=== PATIENT | female | born 1980 | race Caucasian/White ===

== ENCOUNTER → 2019-06-29 | Outpatient (CLI) | payer OTHER ==
--- NOTE | 2019-06-29 15:17 | REP ---
Right lower extremity Duplex Doppler venous ultrasound: Real time compression and duplex Doppler interrogation of the right lower extremity deep venous system is performed. The right common femoral, superficial femoral and popliteal veins are fully compressible with transducer pressure and demonstrate normal spontaneous and phasic flow, without evidence of deep venous thrombosis. Impression: No evidence of deep venous thrombosis of the right lower extremity femoral popliteal venous system. Electronically Signed by Jalen Alvarez MD 06/29/2019 03:09 P
== END ==
LOC: M RAD 14:31
PROVIDERS: ATTEND Physician Assistant Medical
DX: M79.671 Pain in right foot (principal)

== ENCOUNTER → 2020-02-09 | Outpatient (CLI) | payer OTHER | LOC: M LABSMTC 13:10 | PROVIDERS: ATTEND Family Medicine | DX: Z11.59 Encounter for screening for other viral diseases (principal); Z20.818 Contact with and (suspected) exposure to other bacterial communicable diseases ==

== ENCOUNTER 2020-09-26 05:17 | Inpatient (IN) | payer OTHER ==
[~2020-09-26] VITALS: Ht 175.3 cm; Wt 114.2 kg
[2020-09-26] MEDS ORDERED: WELLTAB38 PO (05:49)
[2020-09-26] MEDS ORDERED: LIOT5TAB6 PO ×2 (05:49→06:05)
[2020-09-26] MEDS ORDERED: BUPR150T3 PO ×2 (05:49→06:05)
[2020-09-26] MEDS ORDERED: SYNT137T7 PO (06:05)
[2020-09-26] MEDS ORDERED: IBUP1TAB7 PO (06:05)
[2020-09-26] MEDS ORDERED: VITMTA PO (06:05)
[2020-09-26 06:06] LABS: HEMATOCRIT 40.6 % (36.0-47.0); HEMOGLOBIN 13.1 g/dl (12.0-15.5); MEAN CORPUSCULAR HEMOGLOBIN 32.5 pg (27.0-33.0); MEAN CORPUSCULAR HGB CONC 32.3 g/dl (32.0-36.5); MEAN CORPUSCULAR VOLUME 100.7 fl (80.0-96.0); PLATELET COUNT, AUTOMATED 273 10^3/uL (150-450); RED BLOOD COUNT 4.03 10^6/uL (4.00-5.40); WHITE BLOOD COUNT 5.8 10^3/uL (4.0-10.0)
[2020-09-26 06:51] LABS: ACETAMINOPHEN LEVEL < 2.0 UG/ML (10.0-30.0); ALBUMIN 3.7 GM/DL (3.2-5.2); ALT/SGPT 31 U/L (12-78); BILIRUBIN,DIRECT 0.1 MG/DL (0.0-0.2); BILIRUBIN,TOTAL 0.4 MG/DL (0.2-1.0); BLOOD UREA NITROGEN 8 MG/DL (7-18); CALCIUM LEVEL 8.4 MG/DL (8.5-10.1); CARBON DIOXIDE LEVEL 23 MEQ/L (21-32); CHLORIDE LEVEL 105 MEQ/L (98-107); CREATININE FOR GFR 0.87 MG/DL (0.55-1.30); ETHYL ALCOHOL (ETHANOL) 0.264 % (0.000-0.010); GLOMERULAR FILTRATION RATE > 60.0 (>58); GLUCOSE, FASTING 98 MG/DL (70-100); POTASSIUM SERUM 3.4 MEQ/L (3.5-5.1); SODIUM LEVEL 137 MEQ/L (136-145); TOTAL PROTEIN 7.8 GM/DL (6.4-8.2)
[2020-09-26 07:24] LABS: AMPHETAMINES LEVEL URINE NEGATIVE (NEGATIVE); BARBITURATES URINE NEGATIVE (NEGATIVE); BENZODIAZEPINES URINE NEGATIVE (NEGATIVE); CANNABINOIDS URINE NEGATIVE (NEGATIVE); COCAINE METABOLITE URINE NEGATIVE (NEGATIVE); METHADONE URINE NEGATIVE (NEGATIVE); OPIATES URINE NEGATIVE (NEGATIVE); PHENCYCLIDINE URINE NEGATIVE (NEGATIVE)
[2020-09-26] MEDS ORDERED: buPROPion 75 MG TAB PO SCH (10:00)
[2020-09-26] MEDS ORDERED: NICOTINE 21MG/24HR 1 EA TRANSDERMAL TD ONE (10:00)
[2020-09-26] MEDS ORDERED: LEVOTHYROXINE 137MCG TABLET (0.137MG) PO SCH (10:00)
[2020-09-26] MEDS ORDERED: LEVOTHYROXINE 137MCG TABLET (0.137MG) PO ONE (10:00)
[2020-09-26] MEDS ORDERED: buPROPion **XL** TABLET 150MG (WELLBUTRIN XL) PO ONE (10:45)
[2020-09-26] MEDS ORDERED: LORazepam 2 MG TAB PO STA (12:39)
[2020-09-26] MEDS ORDERED: LORazepam 2 MG TAB PO PRN ×2 (15:15→17:30)
[2020-09-26] MEDS ORDERED: MAALOX 30 ML SUSP *UDC PO PRN (17:30)
[2020-09-26] MEDS ORDERED: IBUPROFEN 800 MG TAB PO PRN (17:30)
[2020-09-26] MEDS ORDERED: MOM 30ML SUSPENSION UDC PO PRN (17:30)
[2020-09-26] MEDS ORDERED: ACETAMINOPHEN TAB 650MG DOSE (2X325MG) PO PRN (17:30)
[2020-09-26 18:30] VITALS: BP 140/84
[2020-09-26 20:28] VITALS: BP 148/92
[2020-09-26 20:33] VITALS: BP 148/92
[2020-09-26] MEDS ORDERED: THIAMINE 100 MG TAB PO SCH (21:00)
[2020-09-26] MEDS: THIAMINE 100 MG TAB PO SCH (22:52)
[2020-09-26] MEDS: traZODone 50 MG TAB PO PRN (22:56)
[2020-09-27 05:46] VITALS: BP 150/90
[2020-09-27 06:23] VITALS: BP 150/90
[2020-09-27] MEDS: LEVOTHYROXINE 137MCG TABLET (0.137MG) PO SCH (06:29)
[2020-09-27] MEDS ORDERED: INFLUENZA QUADRIVALENT PF VACCINE 0.5ML SYRINGE IM ONE (09:00)
[2020-09-27] MEDS ORDERED: FLUCONAZOLE 100 MG TAB PO SCH (09:00)
[2020-09-27] MEDS: buPROPion 100 MG TAB PO SCH (09:00)
[2020-09-27] MEDS ORDERED: buPROPion **XL** TABLET 150MG (WELLBUTRIN XL) PO SCH (09:00)
[2020-09-27] MEDS ORDERED: FOLIC ACID 1 MG TAB PO SCH (09:00)
[2020-09-27] MEDS: SERTRALINE HCL 50 MG TAB PO SCH (09:00)
[2020-09-27] MEDS ORDERED: MULTIVITAMINS/MINERALS THERAP 1 TAB PO SCH (09:00)
[2020-09-27] MEDS: MULTIVITAMINS/MINERALS THERAP 1 TAB PO SCH (09:13)
[2020-09-27] MEDS: THIAMINE 100 MG TAB PO SCH ×2 (09:13→20:27)
[2020-09-27] MEDS: FOLIC ACID 1 MG TAB PO SCH (09:13)
[2020-09-27] MEDS: NICOTINE 21MG/24HR 1 EA TRANSDERMAL TD SCH (09:14)
[2020-09-27 10:30] VITALS: BP 147/82
--- NOTE | 2020-09-27 10:40 | HPEPDOC ---
General Date of Admission Sep 26, 2020 at 17:22 Date of Service: Sep 27, 2020 Chief Complaint The patient is a 40-year-old female admitted with a reason for visit of Depressive Disorder. Source: Patient History of Present Illness 40 year old female with PMH of Hypothyroid after thyroidectomy, obesity, depression, alcohol use disorder [facility] Depression and suicidal gesture by cutting her left forearm with a blunt knife. I am seeing the patient for medical history and physical. She complained rashes over her legs and thighs. this started from this summer from the lower part of the leg and then involved several spots on both the legs and upper thighs. The lesions are erythematous, macular about 0.5 cm x 0.5 cm in size, not raised from the surface but rough to touch, dry and eczematous. She has been applying over the counter antifungal spray off and on. It is not itchy. 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, obesity, depression, al cohol use disorder Surgical History Total thyroidectomy, C/S x2 , ovarian cyst surgery, arthroscopic right knee surgery x 9 times, cholecystectomy Family History Significant Family History: Heart disease, Hyperlipidemia Social History * Smoker: current smoker Alcohol: heavy Drugs: denies A-FIB/CHADSVASC A-FIB History Current/History of A-Fib/PAF?: No Review of Systems Constitutional: Reports: Fatigue; Denies: Chills, Fever, Night Sweats Eyes: Denies: Pain, Vision change ENT: Denies: Head Aches, Ear Pain, Dysphagia Skin: Reports: Rash, Lesions, Bruising Pulmonary: Denies: Dyspnea, Cough Cardiovascular: Denies: Chest Pain, Palpitations, Orthopnea, Paroxysmal Noc. Dyspnea, Lt Headedness Gastrointestinal: Denies: Nausea, Vomiting, Abdominal Pain, Diarrhea Hematologic: Denies: Bruising, Bleeding Excessively Musculoskeletal: Reports: Joint Pain (both knee joints); Denies: Neck Pain, Back Pain, Muscle Pain, Spasms Physical Examination General Exam: Positive: Alert, Cooperative, No Acute Distress Eye Exam: Positive: PERRLA, Conjunctiva & lids normal, EOMI; Negative: Sclera icteric ENT Exam: Positive: Atraumatic, Mucous membr. moist/pink, Pharynx Normal Neck Exam: Positive: Supple; Negative: JVD, thyromegaly Chest Exam: Positive: Clear to auscultation, Normal air movement Heart Exam: Positive: Rate Normal, Regular Rhythm, Normal S1, Normal S2; Negative: Murmurs, Rubs Abdomen Exam: Positive: Normal bowel sounds, Soft; Negative: Tenderness, Hepatospenomegaly Extremity Exam: Positive: Normal pulses; Negative: Clubbing, Cyanosis, Edema Skin Exam: Positive: Rash (on both legs and thighs.), Other skin issue (brouising on both the upper thighs) Neuro Exam: Positive: Normal Gait, Normal Speech, Cranial Nerves 3-12 NL, Reflexes 2+ Vital Signs Vital Signs Date Time Temp Pulse Resp B/P (MAP) Pulse Ox O2 Delivery O2 Flow Rate FiO2 09/27/20 06:23 99.1 86 16 150/90 (110) 98 Room Air Laboratory Data Labs 24H Laboratory Tests 2 09/26/20 15:39: Coronavirus (COVID-19)(PCR) NEGATIVE, Influenza Type A (RT-PCR) NEGATIVE, Influenza Type B (RT-PCR) NEGATIVE, Respiratory Syncytial Virus (PCR) NEGATIVE Assessment/Plan 40 year old female with PMH of Hypothyroid after thyroidectomy, obesity, depression, alcohol use disorder [facility] Depression and suicidal gesture by cutting her left forearm with a blunt knife. I am seeing the patient for medical history and physical. Rash possibly taenia corporis will give fluconazole and nystatin/ triamcinolone cream. Post surgical Hypothyroidism continue Synthroid and Liothyronine. Depression as per psychiatry Alcohol use disorder. Plan / VTE VTE Prophylaxis Ordered?: No (freely ambulatory) BHANU MORALES MD Sep 27, 2020 07:34
[2020-09-27] MEDS: MYCOLOG CREAM 15 GM (NYSTATIN/TRIAMCINOLONE) TOP SCH ×2 (12:01→20:27)
[2020-09-27] MEDS: LIOTHYRONINE 25 MCG TAB PO SCH (12:03)
--- NOTE | 2020-09-27 15:45 | MHHPEPDOC ---
General Date Of Admission: Sep 26, 2020 Legal Status: 9.39 Chief Complaint "I've been so, so lonely" History of Present Illness HISTORY OF THE PRESENT ILLNESS: Patient is a 40 -year-old , female, who, as per ED report: ".Pt. reports feeling overwhelmed,anxious, having panic attacks. She states of two years told started talking about divorce last night and she became very upset, felt herself getting very angry and felt like it was a way to get out of the current situation, so she took fork and made cuts to her arm with a fork. Pt. states she called police herself. She denies current SI. She states that she has been drinking almost daily for past couple of months due to stress. She believes spouse may be having an affair, he has been taking medication for erectile dysfunction even when he is not home. Pt. reports she has been home with children(6 between two of them) and doing home schooling due to Covid and not getting help from spouse due to him working. She is tearful during interveiw. She reports history of PTSD,Anxiety and depression. Pt. denies current out-pt counseling, receives medication from her PCP." Psychiatric Review of Systems Depression (2 or more weeks): depressed mood, anhedonia, insomnia/hypersomnia, feelings of excess/guilt, feelings of worthlesness, decreased energy, difficulty concentrating, appetite changes (she says is all over the place, but she is gaining weight and she thinks is scondary to alcohol abuse), suicidal thoughts Sirena (4 or more days of): denies Psychosis: paranoia (she says she has felt paranoid and it has been this way for severl years), denies PTSD: history of trauma (She says she had a very bad marriage ad she is still "messing up with me". She says she has a build up anger) Anxiety: gen/non-specific anxiety, situational anxiety, stressor related anxiety, panic attacks Anxiety/ 6 months or more of: restlessness, keyed up, easily fatigued, difficulty concentrating, irritability, muscle tension, sleep disturbance Past Psychiatric History Previous Psychiatric Diagnosis: Has a h/o depression and alcohol abuse Previous Psychiatric Admissions: Denies Suicide Attempts: She got admitted because she was using a fork to hut herself a nd called the Police asking for help. Psychiatric Follow-up: None Psychiatric medications: She says she has taken a lot of them, she says she can't begin to remember the names of the medications but according to h/o, she has been taking Wellbutrin and Buspar. She says she is not responding to them anymore Past Medical History Medical Problems As per Dr. 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 her gallbladder was removed, she had a thyroidectomy) Surgeries: Yes Family Medical/Psychiatric HX Medical Problems Mother has COPD. Mom had prostate cancer, one of her aunts had cervical cancer. Psychiatric Disorders: Yes (She thinks her father is bipolar and has panic attacks. he is medicated) Addiction: Yes (Father is a recovering alcoholic of 27 years) Suicide Attemps/Completions: No Addiction History nicotine (She says she is trying to quit smoking), alcohol, cocaine (When she was in her twenties, she was experimenting), other (marijuana years ago, experimenting) Social History Childhood: Mom and dad when she was in 3rd or 4th grade. Mom was angry all the time. Every other weekend she went to her grandparents. Her father re . Her parents didn't have a good relationship because he was an alcoholic. he had a good relationship with siblings, mom and dad. Abuse/Trauma: Denies Current Living Situation: Lives at with her . She has 4 children from her ex and her has 2 children from his ex. 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 her first . Lives with her second who is also Mental Status Examination General Appearance: unkempt, disheveled, hospital scubs/clothing Build: average Demeanor: average Eye Contact: average Activity: average Behavior: cooperative Speech: clear, spontaneous, reg/rate,rhythm,volume Mood: depressed, anxious Affect: full, congruent, anxious Thought Process: logical/linear, depressed Thought Content (Delusions): none reported Thought Content (Other): preoccupied, ideas of reference Thought Content (Aggressive): none reported Perception (Hallucinations): none reported Perception (Other): none reported Cognition (Impairment of): none reported Cognition(Intelligence Est.): average Oriented: Awake, Alert, Oriented times three Insight: fair Judgment: Fair Psychosis: Denies Diagnoses 1. Adjustment disorder with anxious/depressed mood 2. ETOH induced mood disorder 3. Major Depressive Disorder, recurrent 4. alcohol use disorder A-FIB/CHADSVASC A-FIB History Current/History of A-Fib/PAF?: No Current PO Anticoag Therapy: No Age/Risk Factor Scoring CHADSVASC: CHADSVASC Response (Comments) Value Age Risk Factor Age < 65 years old 0 Gender Risk Factor Female 1 Hx of CHF No 0 Hx of HTN No 0 Hx of Stroke/TIA/or VTE No 0 Hx of Diabetes No 0 Hx of Vascular Disease No 0 Total 1 Treatment Treatment ordered: NONE Reason Anticoagulant not given: Not indicated/[id number] Assessment She is very depressed, she is insightful about her alcohol use disorder, about it making things more difficult. she has low self esteem, she thinks her is having an affair and this is affecting her alos, besides, she feels she lost her career ad her independence because she hasn't been working since covid started. Initial Treatment Plan 1. Patient was admitted on a [9.39] status. 2. Complete history was obtained. 3. With patients permission, family will be contacted and database will be expanded. 4. Patients medication regimen will be reviewed and changed accordingly. 5. Patient will be provided with protected environment. 6. Patient will be treated with individual, group, and milieu therapies. 7. Patient will receive supportive psych-education. 8. Discharge planning will commence immediately. 9. Outpatient follow-up treatment will be strongly recommended. 10. The initial treatment plan will focus initially on: * Depression. * Anxiety * Risk for suicide. * Alcohol abuse ESTIMATED LENGTH OF STAY: 5-7 DAYS. TIME SPENT COUNSELING AND COORDINATING INITIAL CARE: 60 minutes. Vital Signs Vital Signs Date Time Temp Pulse Resp B/P (MAP) Pulse Ox O2 Delivery O2 Flow Rate FiO2 09/27/20 10:40 Room Air 09/27/20 10:30 99 147/82 09/27/20 06:23 99.1 16 98 Laboratory Data 24H Labs Laboratory Tests 2 09/26/20 15:39: Coronavirus (COVID-19)(PCR) NEGATIVE, Influenza Type A (RT-PCR) NEGATIVE, Influenza Type B (RT-PCR) NEGATIVE, Respiratory Syncytial Virus (PCR) NEGATIVE Medications Scheduled Bupropion Hcl (Bupropion Xl) 150 Mg Tab.er.24h, 150 MG PO DAILY, (Reported) Levothyroxine Sodium (Synthroid) 137 Mcg Tablet, 137 MCG PO DAILY, (Reported) Liothyronine Sodium (Liothyronine Sodium) 5 Mcg Tablet, 5 MCG PO DAILY, (Reported) Multivitamins (Thera M Plus Tablet) 1 Each Tablet, 1 TAB PO DAILY, (Reported) Scheduled PRN Ibuprofen (Ibuprofen) 800 Mg Tablet, 800 MG PO TID PRN for PAIN, (Reported) Allergies Coded Allergies: No Known Allergies (Verified Allergy, Unknown, 09/26/20) NOLBERTO GASTON MD Sep 27, 2020 15:11
[2020-09-27 15:57] VITALS: BP 176/87
[2020-09-27 18:11] VITALS: BP 176/87
[2020-09-27] MEDS: traZODone 50 MG TAB PO PRN (20:27)
[2020-09-27] MEDS ORDERED: diphenhydrAMINE 50MG CAP PO ONE (21:15)
[2020-09-27] MEDS ORDERED: LORazepam 1 MG TAB PO ONE (21:15)
[2020-09-27 22:30] VITALS: BP 142/92
[2020-09-28] MEDS: LEVOTHYROXINE 137MCG TABLET (0.137MG) PO SCH (05:53)
[2020-09-28 06:28] VITALS: BP 124/66
[2020-09-28 06:31] VITALS: BP 124/78
[2020-09-28] MEDS: LIOTHYRONINE 25 MCG TAB PO SCH (08:43)
[2020-09-28] MEDS: SERTRALINE HCL 50 MG TAB PO SCH (08:43)
[2020-09-28] MEDS: NICOTINE 21MG/24HR 1 EA TRANSDERMAL TD SCH (08:43)
[2020-09-28] MEDS: buPROPion 100 MG TAB PO SCH (08:43)
[2020-09-28] MEDS: FOLIC ACID 1 MG TAB PO SCH (08:44)
[2020-09-28] MEDS: THIAMINE 100 MG TAB PO SCH ×2 (08:44→20:07)
[2020-09-28] MEDS: MULTIVITAMINS/MINERALS THERAP 1 TAB PO SCH (08:44)
[2020-09-28] MEDS: MYCOLOG CREAM 15 GM (NYSTATIN/TRIAMCINOLONE) TOP SCH ×2 (08:45→20:08)
[2020-09-28] MEDS ORDERED: OLANZapine 5 MG TAB PO ONE (10:00)
[2020-09-28] MEDS ORDERED: OLANZapine 5 MG TAB PO PRN (10:00)
--- NOTE | 2020-09-28 14:40 | MHIPNPDOC ---
[facility] Progress Note Progress Note DATE OF SERVICE: 09/28/20 HISTORY: As per previous notes: "Patient is a 40 -year-old , female, who, as per ED report: ".Pt. reports feeling overwhelmed,anxious, having panic attacks. She states of two years told started talking about divorce last night and she became very upset, felt herself getting very angry and felt like it was a way to get out of the current situation, so she took fork and made cuts to her arm with a fork. Pt. states she called police herself. She denies current SI. She states that she has been drinking almost daily for past couple of months due to stress. She believes spouse may be having an affair, he has been taking medication for erectile dysfunction even when he is not home. Pt. reports she has been home with children(6 between two of them) and doing home schooling due to Covid and not getting help from spouse due to him working. She is tearful during interveiw. She reports history of PTSD,Anxiety and depression. Pt. denies current out-pt counseling, receives medication from her PCP." VITAL SIGNS: See below. NEW TEST RESULTS: See below CURRENT MEDICATIONS: See below. Mental Status Examination General Appearance: unkempt, disheveled, personla clothes, good eye contact Build: average Demeanor: average Eye Contact: average Activity: average Behavior: cooperative, anxious Speech: clear, spontaneous, reg/rate,rhythm,volume Mood: depressed, anxious Affect: full, congruent, anxious Thought Process: logical/linear, depressed Thought Content (Delusions): none reported Thought Content (Other): preoccupied, ideas of reference, angry thoughts about the problems her marriage is going through Thought Content (Aggressive): none reported Perception (Hallucinations): none reported Perception (Other): none reported Cognition (Impairment of): none reported Cognition(Intelligence Est.): average Oriented: Awake, Alert, Oriented times three Insight: fair Judgment: Fair Psychosis: Denies Diagnoses 1. Adjustment disorder with anxious/depressed mood 2. ETOH induced mood disorder 3. Major Depressive Disorder, recurrent 4. alcohol use disorder ASSESSMENT: She says she has been having a very bad time because someone ( she thinks it was one of her friends) old her 19 year old son that she has at the hospital. He went to speak with the patient;s and found out that her was having a green party with some women at their home and he was celebrating that they are getting a divorce. She doesn't want a divorce, she wants treatment, she wants to stop drinking, she wants to go to work, become an independent person again, so that her will be able to see the change in her. MANAGEMENT PLAN: She is very anxious but she says she took a Zyprexa 5 mgs today around 10:20 a.m and she has it ordered every 6 hours as needed. She feels that is working and is helping to control her anxiety and her mood, since she says she has been "up and down lately" ( however, she doesn't fulfil criteria for bipolar disorder). I think her mood instability is related to her anxiety and her drinking problem. TIME SPENT: 25 minutes. Vital Signs Vital Signs Date Time Temp Pulse Resp B/P (MAP) Pulse Ox O2 Delivery O2 Flow Rate FiO2 09/28/20 09:40 Room Air 09/28/20 06:31 98.7 81 16 124/78 (93) 98 Current Medications Current Medications Medications (Trade) Dose Ordered Sig/Tabitha Route PRN Reason Start Time Stop Time Status Last Admin Dose Admin Acetaminophen (Tylenol Tab) 650 mg Q6HP PRN PO HEADACHE or DISCOMFORT 09/26/20 17:30 Al Hydrox/Mg Hydrox/Simethicone (Mylanta) 30 ml Q4HP PRN PO HEARTBURN/INDIGESTION 09/26/20 17:30 Bupropion HCl (Wellbutrin Xl) 150 mg DAILY PO 09/27/20 09:00 09/27/20 15:43 DC 09/27/20 09:13 Bupropion HCl (Wellbutrin) 50 mg DAILY PO 09/27/20 09:00 09/28/20 08:43 Bupropion HCl (Wellbutrin) 150 mg NOW PO 09/26/20 10:00 Cancel Fluconazole (Diflucan Tablet) 200 mg Sa@0900 PO 09/27/20 09:00 10/18/20 09:01 09/27/20 12:01 Folic Acid (Folic Acid) 1 mg DAILY PO 09/27/20 09:00 09/26/20 19:29 DC Folic Acid (Folic Acid) 1 mg DAILY PO 09/27/20 09:00 12/6/20 08:44 Home Med (Med Rec Complete!) ASDIRECTED XX 09/26/20 06:15 09/26/20 06:09 DC Ibuprofen (Advil) 800 mg TIDP PRN PO PAIN 09/26/20 17:30 09/27/20 21:53 Levothyroxine Sodium (Synthroid) 137 mcg DAILY@0600 PO 09/27/20 06:00 09/28/20 05:53 Levothyroxine Sodium (Synthroid) 137 mcg NOW PO 09/26/20 10:00 Cancel Liothyronine Sodium (Cytomel) 6.25 mcg DAILY PO 09/27/20 09:00 09/28/20 08:43 Lorazepam (Ativan) 2 mg ASDIRECTED PRN PO SEE PROTOCOL 09/26/20 15:15 09/26/20 19:30 DC Lorazepam (Ativan) 2 mg ASDIRECTED PRN PO SEE PROTOCOL 09/26/20 17:30 09/27/20 06:31 Lorazepam (Ativan) 2 mg STAT STAT PO 09/26/20 12:39 09/26/20 12:40 DC 09/26/20 12:48 Magnesium Hydroxide (Milk Of Magnesia) 30 ml DAILYPRN PRN PO CONSTIPATION 09/26/20 17:30 Multivitamins (Theragram-M) 1 tab DAILY PO 09/27/20 09:00 09/26/20 19:30 DC Multivitamins (Theragram-M) 1 tab DAILY PO 09/27/20 09:00 09/28/20 08:44 Nicotine (Nicoderm Cq 21mg) 1 patch DAILY TD 09/27/20 09:00 09/28/20 08:43 Nystatin/ Triamcinolone Acetonide (Mycolog) to lesions on both legs ... BID TOP 09/27/20 09:00 09/28/20 08:45 Olanzapine (ZyPREXA) 5 mg Q6HP PRN PO ANXIETY/AGITATION 09/28/20 10:00 Sertraline HCl (Zoloft) 50 mg QAM PO 09/27/20 09:00 09/28/20 08:43 Thiamine HCl (Thiamine HCl) 100 mg BID PO 09/26/20 17:30 09/29/20 09:01 09/28/20 08:44 Thiamine HCl (Thiamine HCl) 100 mg BID PO 09/26/20 21:00 09/26/20 19:30 DC Trazodone HCl (Desyrel) 50 mg QHSP PRN PO INSOMNIA 09/26/20 17:30 09/27/20 20:27 Allergies Coded Allergies: No Known Allergies (Verified Allergy, Unknown, 09/26/20) NOLBERTO GASTON MD Sep 28, 2020 14:22
[2020-09-28 17:10] VITALS: BP 136/88
[2020-09-28 17:12] VITALS: BP 136/88
[2020-09-28] MEDS: traZODone 50 MG TAB PO PRN (20:09)
[2020-09-29] MEDS: LEVOTHYROXINE 137MCG TABLET (0.137MG) PO SCH (06:16)
[2020-09-29 06:27] VITALS: BP 136/61
[2020-09-29] MEDS: MYCOLOG CREAM 15 GM (NYSTATIN/TRIAMCINOLONE) TOP SCH ×2 (08:35→20:19)
[2020-09-29] MEDS: SERTRALINE HCL 50 MG TAB PO SCH (08:36)
[2020-09-29] MEDS: NICOTINE 21MG/24HR 1 EA TRANSDERMAL TD SCH (08:36)
[2020-09-29] MEDS: buPROPion 100 MG TAB PO SCH (08:39)
[2020-09-29] MEDS ORDERED: PILL CUTTER 1 EACH XX PRN (08:45)
[2020-09-29] MEDS: LIOTHYRONINE 25 MCG TAB PO SCH (08:45)
--- NOTE | 2020-09-29 09:59 | MHIPNPDOC ---
[facility] Progress Note Progress Note DATE OF SERVICE: 09/29/20 HISTORY: The patient is met with, she reports she is doing well feeling improved since coming to the unit, she disputes that she was ultimately suicidal but d escribes the situation that have brought her in as the primary provoking stressor. She otherwise describes she has no problems with her medications and is feeling improved she is interested in going home staff reports she has been doing well and that there is a paucity of concerns. VITAL SIGNS: See below. NEW TEST RESULTS: None. CURRENT MEDICATIONS: See below. MENTAL STATUS EXAMINATION: Patient is a 40-year old female, who is woman. Speech: Is fluid. Language skills are intact. Thought processes including: Linear. Thought content: Intact . Abstract reasoning, and computation: Intact. Description of associations: Intact. Description of abnormal or psychotic thoughts: Denies SI HI/AVH. Judgment: Good. Insight: Good. Orientation: AO x3. Recent and remote memory: Intact. Attention span and concentration: Intact. Language: Intact. Fund of knowledge: Linear. Mood: "Good"". Affect: Euthymic. DIAGNOSES: 1. Unspecified depressive disorder. 2. Alcohol use, unspecified. ASSESSMENT: Continue medications as current, likely discharge tomorrow if safe plan to be made MANAGEMENT PLAN: Continue medications as current, will pose disulfiram as an option when she leaves tomorrow. TIME SPENT: 15 minutes. Vital Signs Vital Signs Date Time Temp Pulse Resp B/P (MAP) Pulse Ox O2 Delivery O2 Flow Rate FiO2 09/29/20 06:27 97.2 71 18 136/61 (86) 09/28/20 09:40 Room Air 09/28/20 06:31 98 Current Medications Current Medications Medications (Trade) Dose Ordered Sig/Tabitha Route PRN Reason Start Time Stop Time Status Last Admin Dose Admin Acetaminophen (Tylenol Tab) 650 mg Q6HP PRN PO HEADACHE or DISCOMFORT 09/26/20 17:30 Al Hydrox/Mg Hydrox/Simethicone (Mylanta) 30 ml Q4HP PRN PO HEARTBURN/INDIGESTION 09/26/20 17:30 Bupropion HCl (Wellbutrin Xl) 150 mg DAILY PO 09/27/20 09:00 09/27/20 15:43 DC 09/27/20 09:13 Bupropion HCl (Wellbutrin) 50 mg DAILY PO 09/27/20 09:00 09/29/20 08:39 Bupropion HCl (Wellbutrin) 150 mg NOW PO 09/26/20 10:00 Cancel Fluconazole (Diflucan Tablet) 200 mg Sa@0900 PO 09/27/20 09:00 10/18/20 09:01 09/27/20 12:01 Folic Acid (Folic Acid) 1 mg DAILY PO 09/27/20 09:00 09/26/20 19:29 DC Folic Acid (Folic Acid) 1 mg DAILY PO 09/27/20 09:00 09/28/20 23:30 DC 09/28/20 08:44 Home Med (Med Rec Complete!) ASDIRECTED XX 09/26/20 06:15 09/26/20 06:09 DC Ibuprofen (Advil) 800 mg TIDP PRN PO PAIN 09/26/20 17:30 09/27/20 21:53 Levothyroxine Sodium (Synthroid) 137 mcg DAILY@0600 PO 09/27/20 06:00 09/29/20 06:16 Levothyroxine Sodium (Synthroid) 137 mcg NOW PO 09/26/20 10:00 Cancel Liothyronine Sodium (Cytomel) 6.25 mcg DAILY PO 09/27/20 09:00 09/29/20 08:45 Lorazepam (Ativan) 2 mg ASDIRECTED PRN PO SEE PROTOCOL 09/26/20 15:15 09/26/20 19:30 DC Lorazepam (Ativan) 2 mg ASDIRECTED PRN PO SEE PROTOCOL 09/26/20 17:30 09/28/20 23:30 DC 09/27/20 06:31 Lorazepam (Ativan) 2 mg STAT STAT PO 09/26/20 12:39 09/26/20 12:40 DC 09/26/20 12:48 Magnesium Hydroxide (Milk Of Magnesia) 30 ml DAILYPRN PRN PO CONSTIPATION 09/26/20 17:30 Multivitamins (Theragram-M) 1 tab DAILY PO 09/27/20 09:00 09/26/20 19:30 DC Multivitamins (Theragram-M) 1 tab DAILY PO 09/27/20 09:00 09/28/20 23:30 DC 09/28/20 08:44 Nicotine (Nicoderm Cq 21mg) 1 patch DAILY TD 09/27/20 09:00 09/29/20 08:36 Nystatin/ Triamcinolone Acetonide (Mycolog) to lesions on both legs ... BID TOP 09/27/20 09:00 09/29/20 08:35 Olanzapine (ZyPREXA) 5 mg Q6HP PRN PO ANXIETY/AGITATION 09/28/20 10:00 Sertraline HCl (Zoloft) 50 mg QAM PO 09/27/20 09:00 09/29/20 08:36 Thiamine HCl (Thiamine HCl) 100 mg BID PO 09/26/20 17:30 09/28/20 23:30 DC 09/28/20 20:07 Thiamine HCl (Thiamine HCl) 100 mg BID PO 09/26/20 21:00 09/26/20 19:30 DC Trazodone HCl (Desyrel) 50 mg QHSP PRN PO INSOMNIA 09/26/20 17:30 09/28/20 20:09 Allergies Coded Allergies: No Known Allergies (Verified Allergy, Unknown, 09/26/20) ZACHARY SANCHEZ DO Sep 29, 2020 09:59
[2020-09-29 16:00] VITALS: BP 144/81
[2020-09-29] MEDS: traZODone 50 MG TAB PO PRN (20:18)
[2020-09-30] MEDS: LEVOTHYROXINE 137MCG TABLET (0.137MG) PO SCH (06:07)
[2020-09-30 06:24] VITALS: BP 118/78
[2020-09-30] MEDS: MYCOLOG CREAM 15 GM (NYSTATIN/TRIAMCINOLONE) TOP SCH (08:24)
[2020-09-30] MEDS: NICOTINE 21MG/24HR 1 EA TRANSDERMAL TD SCH (08:25)
[2020-09-30] MEDS: buPROPion 100 MG TAB PO SCH (08:25)
[2020-09-30] MEDS: SERTRALINE HCL 50 MG TAB PO SCH (08:25)
[2020-09-30] MEDS: LIOTHYRONINE 25 MCG TAB PO SCH (08:26)
[2020-09-30] MEDS ORDERED: CYTO25TA6 PO (09:36)
[2020-09-30] MEDS ORDERED: SYNT137T7 PO (09:36)
[2020-09-30] MEDS ORDERED: BUPR-69 PO (09:36)
[2020-09-30] MEDS ORDERED: SERT50TA29 PO (09:36)
[2020-09-30] MEDS ORDERED: TRAZ-252 PO (09:36)
[2020-09-30] MEDS ORDERED: MYCO15CR TOP (09:36)
[2020-09-30] MEDS ORDERED: NICO21PAT TD (09:36)
[2020-09-30] MEDS ORDERED: HYDR50TA70 PO ×2 (09:40→09:42)
--- NOTE | 2020-09-30 13:36 | MHDSPDOC ---
[facility] Discharge Summary Discharge Summary DATE OF ADMISSION: Sep 26, 2020 at 17:22 DATE OF DISCHARGE: Sep 30, 2020 at 11:06 DISCHARGE DIAGNOSES: 1. Adjustment disorder with anxious/depressed mood 2. ETOH induced mood disorder 3. Major Depressive Disorder, recurrent 4. alcohol use disorder REASON FOR ADMISSION: Patient is a 40 -year-old , female, who, as per ED report: ".Pt. reports feeling overwhelmed, anxious, having panic attacks. She states of two years started talking about divorce last night and she became very upset, felt herself getting very angry and felt like it was a way to get out of the current situation, so she took fork and made cuts to her arm with a fork. Pt. states she called police herself. She denies current SI. She states that she has been drinking almost daily for past couple of months due to stress. She believes spouse may be having an affair, he has been taking medication for erectile dysfunction even when he is not home. Pt. reports she has been home with children(6 between two of them) and doing home schooling due to Covid and not getting help from spouse due to him working. She is tearful during interview. She reports history of PTSD,Anxiety and depression. Pt. denies current out-pt counseling, receives medication from her PCP." CONSULTANTS INVOLVED: See Medical H + P by Hospitalist TREATMENT AND PROGRESS ON THE UNIT: Patient was admitted to the [facility] on a 9.39 legal status he was afforded the following treatment modalities: 1) Individual Therapy 2) Group Therapy 3) Medication Management 4) Milieu Therapy 5) Safe Environment HOSPITAL COURSE: Patient was restarted on her home medications with a decrease in Wellbutrin and introduction to Zoloft. She reported feeling better in today's interview and feels that the medication changes are effective DISCHARGE ASSESSMENT: Patient is reporting improvement in her mood. Denies anxiety and panic. Denies depression or suicidal ideation. She is not observed to be manic, psychotic, delusional or paranoid. She reports that she is hoping to reconcile with her but also wants to go to school to become an [employer] ENG[employer] just in case her marriage does not work out. She feels she would feel better about herself if she had something to work on herself other than guiding the children with their school work. Patient at this time has a normal mentation and does not meet criteria for continued admission on an involuntary legal stat us. A voluntary admission was offered and she declined, stating that she wants to return home to be with her family and work on her marriage. MENTAL STATUS EXAMINATION ON DISCHARGE: Patient is a 40 -year-old , Stay at Home Mother, Domiciled, , female who is admitted to [facility] for anxiety and panic attacks. Patient had cut herself after her started talking to her about getting a divorce. She became very confrontational and cut herself. In today's interview, she is dressed appropriately, her hygiene and grooming is well-kempt, she maintains good eye contact, denies any restlessness or slow moving or apathy Speech: Is fluid, conversant, normal rate, tone and volume Language skills are intact Thought processes including: linear and goal oriented Thought content: denies depression and anxiety. Denies suicidal/homicidal idea tion, planning or intent. Abstract reasoning, and computation: fair Description of associations: denies, none observed Description of abnormal or psychotic thoughts: denies, none observed. Judgment: fair Insight: fair Orientation: alert and oriented to person, place, time and situation Recent and remote memory: intact Attention span and concentration: good Language: expansive Fund of knowledge: average Mood: Euthymic Mood Affect: reactive MEDICATIONS ON DISCHARGE: See Medication Reconciliation PLAN/FOLLOWUP ARRANGEMENTS: She is following up with [facility], see material planner's notes The amount of time spent in the coordination of care for this patient was approximately 40 minutes. Vital Signs/I&Os Vital Signs Date Time Temp Pulse Resp B/P (MAP) Pulse Ox O2 Delivery O2 Flow Rate FiO2 09/30/20 09:21 Room Air 09/30/20 06:24 98.1 67 18 118/78 (91) 09/29/20 16:00 100 Medications Scheduled Bupropion HCl (Bupropion HCl) 100 Mg Tablet, 50 MG PO DAILY for Depression, #7 Levothyroxine Sodium (Synthroid) 137 Mcg Tablet, 137 MCG PO DAILY for Hypothyroid, #7 Liothyronine Sodium (Cytomel) 25 Mcg Tablet, 6.25 MCG PO DAILY for Thyroid Replcement, #15 Multivitamins (Thera M Plus Tablet) 1 Each Tablet, 1 TAB PO DAILY, (Reported) Nicotine (Nicotine Patch) 21 Mg Patch.td24, 1 PATCH TD DAILY for Nicotine Withdrawal, #7 Nystatin/Triamcinolone (Nystatin-Triamcinolone Cream) 15 Gm Cream..g., 1 DOSE TOP BID for Fungal cream, #1 Sertraline HCl (Sertraline HCl) 50 Mg Tablet, 50 MG PO QAM for Depression, #7 Scheduled PRN Hydroxyzine HCl (Hydroxyzine HCl) 50 Mg Tablet, 50 MG PO BIDP PRN for ANXIETY/ AGITATION, #14 Ibuprofen (Ibuprofen) 800 Mg Tablet, 800 MG PO TID PRN for PAIN, (Reported) Trazodone HCl (Trazodone HCl) 50 Mg Tablet, 50 MG PO QHSP PRN for INSOMNIA, #7 Allergies Coded Allergies: No Known Allergies (Verified Allergy, Unknown, 09/26/20) MARTIN SERRANO NP Sep 30, 2020 13:36
== END 2020-09-30 11:06 | disposition home or self-care (01) | DRG 882 ==
LOC: M ED 05:17 → M ED INP 17:22 → M PSY 18:25
PROVIDERS: ADMIT Psychiatry & Neurology Addiction Medicine; ATTEND Psychiatry & Neurology Psychiatry
DX: F43.23 Adjustment disorder with mixed anxiety and depressed mood (principal); F33.9 Major depressive disorder, recurrent, unspecified; F10.14 Alcohol abuse with alcohol-induced mood disorder; E66.9 Obesity, unspecified; F17.200 Nicotine dependence, unspecified, uncomplicated; E89.0 Postprocedural hypothyroidism; B35.4 Tinea corporis; Z81.1 Family history of alcohol abuse and dependence; Z81.8 Family history of other mental and behavioral disorders; Z63.0 Problems in relationship with spouse or partner; Z56.0 Unemployment, unspecified; Z79.899 Other long term (current) drug therapy; Z68.37 Body mass index [BMI] 37.0-37.9, adult; Z20.828 Contact with and (suspected) exposure to other viral communicable diseases